=== PATIENT | female | born 1955 | race Caucasian/White ===

== ENCOUNTER 2017-03-27 09:44 | Inpatient (IN) | payer MEDICARE, MEDICAID ==
[~2017-03-27] VITALS: Ht 154.9 cm; Wt 47.2 kg
[~2017-03-27 09:44] MED LIST: AMOXICILLIN500 MG PO; APHTHASOL5% MM; ARMOUR THYROID15 MG PO; CHERRY; CIPROFLOXACIN500 MG PO; CONGAPLEX; HYDR12.5C PO; NORCO 325 MG-51 TAB PO; ROBITUSSIN100 MG/5 M PO; ROXICET ORAL SOL5 ML PO; SYNTHROID,LEVO25 MCG PO; THYMEX; VITAMIN D50000 I3 PO; ZOFRAN ODT4 MG SL; ZYRTEC10 MG PO; [UNRECOGNIZED DRUG - OTHER] SL
[2017-03-27 09:50] VITALS: BP 118/71
[2017-03-27] MEDS ORDERED: NP THYROID60 MG PO (09:54)
[2017-03-27 10:41] LABS: BASO % 0.6 % (0.0-1.0); EOS # 0.2 10*3/uL (0.0-0.4); EOS % 3.2 % (1.0-4.0); HEMATOCRIT 36.7 % (37.0-47.0); HEMOGLOBIN 11.8 g/dl (12.0-16.0); LYMPH # 0.8 10*3/uL (1.3-4.4); LYMPH % 17.4 % (27.0-41.0); MEAN CELL VOLUME 89.5 fl (81.0-99.0); MEAN CORPUSCULAR HGB 28.8 pg (27.0-31.0); MEAN CORPUSCULAR HGB CONC 32.2 g/dl (33.0-37.0); MEAN PLATELET VOLUME 9.2 fl (9.6-12.3); MONO # 0.4 10*3/uL (0.1-1.0); MONO % 9.5 % (3.0-9.0); NEUT # 3.2 10*3/uL (2.3-7.9); NEUT % 69.1 % (47.0-73.0); PLATELET COUNT AUTOMATED 267 10*3/uL (130-400); RED CELL DISTRI WIDTH 13.9 % (0-14.5); WHITE BLOOD COUNT 4.7 10*3/uL (4.8-10.8)
[2017-03-27 10:49] LABS: PROTHROMBIN TIME 10.5 SECONDS (9.0-12.4)
[2017-03-27 10:57] LABS: ALBUMIN 3.4 gm/dl (3.1-4.5); ALKALINE PHOSPHATASE 77 U/L (45-117); BILIRUBIN, TOTAL 0.5 mg/dl (0.2-1.0); BUN 13 mg/dl (7-24); C-REACTIVE PROTEIN 0.41 MG/DL (0-0.3); CARBON DIOXIDE 26 mmol/L (21-32); CHLORIDE 107 mmol/L (98-107); CKMB 0.6 ng/ml (0.5-3.6); CPK 44 U/L (26-192); EST GLOM FILT AFRICAN AMERICAN > 60 ml/min; GLUCOSE 98 mg/dL (65-99); MAGNESIUM 2.1 mg/dL (1.5-2.1); POTASSIUM 3.7 mmol/L (3.5-5.1); SGOT/AST 17 IU/L (3-35); SGPT/ALT 15 U/L (12-78); SODIUM 143 mmol/L (136-145); TOTAL PROTEIN 6.7 gm/dL (6.4-8.2); TROPONIN I < 0.015 ng/ml (<0.045)
[2017-03-27 11:22] LABS: BILIRUBIN NEGATIVE (NEGATIVE); BLOOD NEGATIVE (NEGATIVE); CLARITY CLEAR (CLEAR); COLOR STRAW (YELLOW); GLUCOSE NEGATIVE (NEGATIVE); KETONE NEGATIVE (NEGATIVE); LEUKO ESTERASE TRACE (NEGATIVE); NITRITE NEGATIVE (NEGATIVE); PH 5.5 (5.0-9.0); PROTEIN NEGATIVE (NEGATIVE); SPECIFIC GRAVITY <= 1.005 (1.005-1.030); UROBILINOGEN 0.2 E.U./dl (0.2-1.0)
[2017-03-27 11:45] LABS: URINE REFLEX COMMENT YES (NO)
[2017-03-27 13:15] VITALS: BP 120/66
[2017-03-27] MEDS ORDERED: ARMOUR THYROID60 MG PO (14:11)
[2017-03-27 16:00] VITALS: BP 136/55
[2017-03-27 20:00] VITALS: BP 134/66
[2017-03-28] VITALS: BP 135/78
[2017-03-28 05:42] LABS: BUN 16 mg/dl (7-24); CARBON DIOXIDE 27 mmol/L (21-32); CHLORIDE 106 mmol/L (98-107); EST GLOM FILT AFRICAN AMERICAN > 60 ml/min; GLUCOSE 87 mg/dL (65-99); POTASSIUM 3.5 mmol/L (3.5-5.1); SODIUM 144 mmol/L (136-145)
[2017-03-28 06:01] LABS: BASO % 0.6 % (0.0-1.0); EOS # 0.2 10*3/uL (0.0-0.4); EOS % 3.7 % (1.0-4.0); HEMATOCRIT 35.4 % (37.0-47.0); HEMOGLOBIN 11.4 g/dl (12.0-16.0); LYMPH # 1.7 10*3/uL (1.3-4.4); LYMPH % 32.2 % (27.0-41.0); MEAN CELL VOLUME 89.8 fl (81.0-99.0); MEAN CORPUSCULAR HGB 28.9 pg (27.0-31.0); MEAN CORPUSCULAR HGB CONC 32.2 g/dl (33.0-37.0); MEAN PLATELET VOLUME 9.6 fl (9.6-12.3); MONO # 0.7 10*3/uL (0.1-1.0); MONO % 12.2 % (3.0-9.0); NEUT # 2.8 10*3/uL (2.3-7.9); NEUT % 51.1 % (47.0-73.0); PLATELET COUNT AUTOMATED 247 10*3/uL (130-400); RED BLOOD COUNT 3.94 10*6/uL (4.10-5.10); RED CELL DISTRI WIDTH 14.1 % (0-14.5); WHITE BLOOD COUNT 5.4 10*3/uL (4.8-10.8)
[2017-03-28 07:40] LABS: VITAMIN D, 25-HYDROXY 32.9 ng/mL (30-100)
[2017-03-28 07:41] LABS: FOLIC ACID 12.79 ng/mL (>5.38)
[2017-03-28 08:00] VITALS: BP 121/69
[2017-03-28 12:00] VITALS: BP 138/69
[2017-03-28 16:00] VITALS: BP 145/78
[2017-03-28 20:00] VITALS: BP 126/58
[2017-03-29] VITALS: BP 133/64
[2017-03-29 06:30] LABS: BASO % 0.5 % (0.0-1.0); EOS # 0.1 10*3/uL (0.0-0.4); HEMATOCRIT 36.1 % (37.0-47.0); HEMOGLOBIN 11.9 g/dl (12.0-16.0); LYMPH # 1.3 10*3/uL (1.3-4.4); LYMPH % 24.1 % (27.0-41.0); MEAN CELL VOLUME 89.6 fl (81.0-99.0); MEAN CORPUSCULAR HGB 29.5 pg (27.0-31.0); MONO # 0.6 10*3/uL (0.1-1.0); MONO % 10.2 % (3.0-9.0); NEUT # 3.5 10*3/uL (2.3-7.9); NEUT % 62.8 % (47.0-73.0); PLATELET COUNT AUTOMATED 270 10*3/uL (130-400); RED BLOOD COUNT 4.03 10*6/uL (4.10-5.10); WHITE BLOOD COUNT 5.5 10*3/uL (4.8-10.8)
[2017-03-29 06:55] LABS: BUN 10 mg/dl (7-24); CARBON DIOXIDE 27 mmol/L (21-32); CHLORIDE 107 mmol/L (98-107); EST GLOM FILT AFRICAN AMERICAN > 60 ml/min; GLUCOSE 94 mg/dL (65-99); POTASSIUM 3.6 mmol/L (3.5-5.1); SODIUM 144 mmol/L (136-145)
[2017-03-29 08:00] VITALS: BP 109/65
[2017-03-29 12:00] VITALS: BP 134/73
[2017-03-29 16:00] VITALS: BP 110/54
[2017-03-29 20:00] VITALS: BP 113/64
[2017-03-30] VITALS: BP 118/72
[2017-03-30 06:47] LABS: BASO % 0.7 % (0.0-1.0); EOS # 0.2 10*3/uL (0.0-0.4); EOS % 2.8 % (1.0-4.0); HEMATOCRIT 36.5 % (37.0-47.0); HEMOGLOBIN 11.8 g/dl (12.0-16.0); LYMPH # 1.4 10*3/uL (1.3-4.4); LYMPH % 26.1 % (27.0-41.0); MEAN CELL VOLUME 90.3 fl (81.0-99.0); MEAN CORPUSCULAR HGB 29.2 pg (27.0-31.0); MEAN CORPUSCULAR HGB CONC 32.3 g/dl (33.0-37.0); MEAN PLATELET VOLUME 9.2 fl (9.6-12.3); MONO # 0.6 10*3/uL (0.1-1.0); MONO % 10.9 % (3.0-9.0); NEUT # 3.2 10*3/uL (2.3-7.9); NEUT % 59.1 % (47.0-73.0); PLATELET COUNT AUTOMATED 245 10*3/uL (130-400); RED BLOOD COUNT 4.04 10*6/uL (4.10-5.10); WHITE BLOOD COUNT 5.4 10*3/uL (4.8-10.8)
[2017-03-30 06:58] LABS: BUN 14 mg/dl (7-24); CARBON DIOXIDE 26 mmol/L (21-32); CHLORIDE 109 mmol/L (98-107); EST GLOM FILT AFRICAN AMERICAN > 60 ml/min; GLUCOSE 90 mg/dL (65-99); POTASSIUM 3.7 mmol/L (3.5-5.1); SODIUM 143 mmol/L (136-145)
[2017-03-30 08:00] VITALS: BP 130/60
[2017-03-30 12:09] VITALS: BP 150/58
== END 2017-03-30 16:40 | disposition other institution (70) | DRG 605 ==
LOC: ED 09:44 → EDHOLD 12:32 → 4E 12:32
PROVIDERS: Emergency Medicine; Family Medicine; Internal Medicine
PROC: 0HQ0XZZ Repair Scalp Skin, External Approach (ICD-10-PCS; principal; 2017-03-27)
DX: S01.01XA Laceration without foreign body of scalp, initial encounter (principal); E44.0 Moderate protein-calorie malnutrition; S09.90XA Unspecified injury of head, initial encounter; Z68.1 Body mass index [BMI] 19.9 or less, adult; R53.1 Weakness; R26.89 Other abnormalities of gait and mobility; E03.9 Hypothyroidism, unspecified; R26.81 Unsteadiness on feet; W19.XXXA Unspecified fall, initial encounter; Y93.89 Activity, other specified; Y92.091 Bathroom in other non-institutional residence as the place of occurrence of the external cause; Y99.8 Other external cause status; Z79.899 Other long term (current) drug therapy

== ENCOUNTER → 2017-05-04 | Outpatient (CLI) | payer MEDICARE, MEDICAID ==
[~2017-05-04] MED LIST changes: +ARMOUR THYROID60 MG PO; +NP THYROID60 MG PO
== END | disposition home or self-care (01) ==
LOC: CARD 12:39
DX: R06.89 Other abnormalities of breathing (principal)

== ENCOUNTER 2017-06-30 20:51 | Emergency (ER) | payer MEDICARE, MEDICAID ==
[~2017-06-30] VITALS: Wt 42.2 kg
== END 2017-06-30 23:11 | disposition home or self-care (01) ==
LOC: ED 20:51
DX: S01.112A Laceration without foreign body of left eyelid and periocular area, initial encounter (principal); H10.32 Unspecified acute conjunctivitis, left eye; W19.XXXA Unspecified fall, initial encounter; Y93.89 Activity, other specified; Y92.9 Unspecified place or not applicable; Y99.9 Unspecified external cause status

== ENCOUNTER 2017-09-06 05:17 | Emergency (ER) | payer MEDICARE, MEDICAID ==
[~2017-09-06] VITALS: Ht 177.8 cm; Wt 44.5 kg
[2017-09-06 06:11] LABS: BASO % 0.7 % (0.0-1.0); EOS # 0.2 10*3/uL (0.0-0.4); EOS % 3.5 % (1.0-4.0); HEMATOCRIT 38.7 % (37.0-47.0); HEMOGLOBIN 12.9 g/dl (12.0-16.0); LYMPH # 1.4 10*3/uL (1.3-4.4); LYMPH % 22.9 % (27.0-41.0); MEAN CELL VOLUME 88.4 fl (81.0-99.0); MEAN CORPUSCULAR HGB 29.5 pg (27.0-31.0); MEAN CORPUSCULAR HGB CONC 33.3 g/dl (33.0-37.0); MEAN PLATELET VOLUME 9.2 fl (9.6-12.3); MONO # 0.6 10*3/uL (0.1-1.0); MONO % 10.1 % (3.0-9.0); NEUT # 3.7 10*3/uL (2.3-7.9); NEUT % 62.6 % (47.0-73.0); PLATELET COUNT AUTOMATED 280 10*3/uL (130-400); RED BLOOD COUNT 4.38 10*6/uL (4.10-5.10); RED CELL DISTRI WIDTH 13.4 % (0-14.5); WHITE BLOOD COUNT 5.9 10*3/uL (4.8-10.8)
[2017-09-06 06:30] LABS: ALBUMIN 3.4 gm/dl (3.1-4.5); ALKALINE PHOSPHATASE 76 U/L (45-117); BUN 24 mg/dl (7-24); CHLORIDE 103 mmol/L (98-107); CREATININE 0.88 mg/dL (0.55-1.02); LIPASE 181 U/L (73-393); POTASSIUM 3.2 mmol/L (3.5-5.1); SGOT/AST 16 IU/L (3-35); SGPT/ALT 18 U/L (12-78); SODIUM 144 mmol/L (136-145); TOTAL PROTEIN 6.9 gm/dL (6.4-8.2)
[2017-09-06 06:31] LABS: FREE T4 1.19 ng/dl (0.76-1.46)
[2017-09-06 06:42] LABS: TROPONIN I < 0.015 ng/ml (<0.045)
[2017-09-06 06:42] LABS: BILIRUBIN NEGATIVE (NEGATIVE); BLOOD TRACE-INTACT (NEGATIVE); CLARITY CLEAR (CLEAR); COLOR YELLOW (YELLOW); GLUCOSE NEGATIVE (NEGATIVE); KETONE NEGATIVE (NEGATIVE); LEUKO ESTERASE TRACE (NEGATIVE); NITRITE NEGATIVE (NEGATIVE); UROBILINOGEN 0.2 E.U./dl (0.2-1.0)
[2017-09-06 07:14] LABS: BACTERIA 1+; MUCOUS 1+
== END 2017-09-06 09:05 | disposition home or self-care (01) ==
LOC: ED 05:17
PROVIDERS: Emergency Medicine Emergency Medical Services
DX: J98.11 Atelectasis (principal); E03.9 Hypothyroidism, unspecified; E87.6 Hypokalemia; R10.11 Right upper quadrant pain; Z79.899 Other long term (current) drug therapy; Z98.890 Other specified postprocedural states

== ENCOUNTER 2017-12-14 17:26 | Emergency (ER) | payer MEDICARE, MEDICAID ==
[~2017-12-14] VITALS: Wt 45.4 kg
[2017-12-14 18:18] LABS: BILIRUBIN NEGATIVE (NEGATIVE); BLOOD TRACE-INTACT (NEGATIVE); CLARITY CLEAR (CLEAR); COLOR YELLOW (YELLOW); GLUCOSE NEGATIVE (NEGATIVE); KETONE NEGATIVE (NEGATIVE); LEUKO ESTERASE NEGATIVE (NEGATIVE); NITRITE NEGATIVE (NEGATIVE); SPECIFIC GRAVITY >= 1.030 (1.005-1.030); UROBILINOGEN 0.2 E.U./dl (0.2-1.0)
[2017-12-14 18:35] LABS: EPITHELIAL CELLS 0-2; WBC 0-2 wbc/hpf (0-5)
== END 2017-12-14 19:02 | disposition home or self-care (01) ==
LOC: ED 17:26
PROVIDERS: Nurse Practitioner Family
DX: N89.8 Other specified noninflammatory disorders of vagina (principal); Z98.890 Other specified postprocedural states; Z79.899 Other long term (current) drug therapy

== ENCOUNTER → 2018-04-25 | Outpatient (CLI) | payer MEDICARE, MEDICAID | END | disposition home or self-care (01) | LOC: US 17:00 | DX: I73.9 Peripheral vascular disease, unspecified (principal); R60.0 Localized edema ==

== ENCOUNTER 2018-06-25 10:49 | Inpatient (IN) | payer MEDICARE, MEDICAID ==
[~2018-06-25] VITALS: Ht 147.3 cm; Wt 66.0 kg
--- NOTE | ~2018-06-25 | EKG ---
[place], [place] ELECTROCARDIOGRAM REPORT NAME: FARRUKH CARRINGTON UNIT #: [id number] ROOM: 426 DOCTOR: EPIPHANY DRAFT REPORT BIRTHDATE: [birth year] [facility] Test Date: 2018-06-25 Test Time: 12:43:53 Pat Name: FARRUKH CARRINGTON Department: Room: 426 Gender: F Recording Artist: GENO : 1955 Requested By: MARCIO HU Order Number: [id number] Reading MD: Yuliya Heath MD Measurements Intervals [place] Rate: 102 P: 42 TN: 184 QRS: -2 QRSD: 75 T: 28 QT: 350 QTc: 456 Interpretive Statements Sinus tachycardia Baseline wander in lead(s) V2 Compared to ECG 06/03/2018 13:55:33 Atrial fibrillation no longer present Ventricular premature complex(es) no longer present Left bundle-branch block no longer present Electronically Signed On 06-26-2018 9:16:56 PDT by Yuliya Heath MD CM:EKGRPT:ELECTROCARDIOGRAM REPORT [id number] MARCIO HU EPIPHANY DRAFT REPORT MARCIO HU
[~2018-06-25 10:49] MED LIST changes: +LEVODOPA25 GM PO
[2018-06-25 10:55] VITALS: BP 112/54
[2018-06-25 12:45] LABS: BASO % 0.4 % (0.0-1.0); EOS # 0.1 10*3/uL (0.0-0.4); EOS % 0.6 % (1.0-4.0); HEMATOCRIT 36.8 % (37.0-47.0); HEMOGLOBIN 11.6 g/dl (12.0-16.0); LYMPH % 10.1 % (27.0-41.0); MEAN CELL VOLUME 91.5 fl (81.0-99.0); MEAN CORPUSCULAR HGB 28.9 pg (27.0-31.0); MEAN CORPUSCULAR HGB CONC 31.5 g/dl (33.0-37.0); MEAN PLATELET VOLUME 9.3 fl (9.6-12.3); MONO % 10.2 % (3.0-9.0); NEUT # 7.8 10*3/uL (2.3-7.9); NEUT % 78.4 % (47.0-73.0); PLATELET COUNT AUTOMATED 275 10*3/uL (130-400); RED BLOOD COUNT 4.02 10*6/uL (4.10-5.10); RED CELL DISTRI WIDTH 14.2 % (0-14.5)
[2018-06-25 12:49] VITALS: BP 129/52
[2018-06-25 12:54] LABS: ACT PARTIAL THROMBO TIME 22.7 SECONDS (20.8-31.5); INTERNATIONAL NORM RATIO 0.9 (2.0-3.5)
[2018-06-25 13:02] LABS: ALBUMIN 3.2 gm/dl (3.1-4.5); ALKALINE PHOSPHATASE 108 U/L (45-117); BUN 21 mg/dl (7-24); CHLORIDE 110 mmol/L (98-107); CREATININE 0.71 mg/dL (0.55-1.02); POTASSIUM 4.3 mmol/L (3.5-5.1); SGOT/AST 12 IU/L (3-35); SGPT/ALT 20 U/L (12-78); SODIUM 144 mmol/L (136-145); TOTAL PROTEIN 6.9 gm/dL (6.4-8.2)
[2018-06-25 13:23] LABS: TROPONIN I < 0.015 ng/ml (<0.045)
[2018-06-25 14:11] VITALS: BP 113/65
[2018-06-25 14:14] LABS: BILIRUBIN NEGATIVE (NEGATIVE); BLOOD NEGATIVE (NEGATIVE); CLARITY CLEAR (CLEAR); COLOR YELLOW (YELLOW); GLUCOSE NEGATIVE (NEGATIVE); KETONE NEGATIVE (NEGATIVE); LEUKO ESTERASE NEGATIVE (NEGATIVE); NITRITE NEGATIVE (NEGATIVE); PH 6.5 (5.0-9.0); UROBILINOGEN 0.2 E.U./dl (0.2-1.0)
[2018-06-25 14:28] VITALS: BP 115/56
[2018-06-25 14:31] LABS: BACTERIA TRACE; EPITHELIAL CELLS 0-1; RBC 0-2 rbc/hpf (0-2)
[2018-06-25] MEDS ORDERED: VITAMIN D-32000 UNI1 PO (15:14)
[2018-06-25] MEDS ORDERED: SINEMET 25-1001 EACH PO (15:15)
[2018-06-25] MEDS ORDERED: BUMETANIDE1 MG PO (15:16)
[2018-06-25] MEDS ORDERED: KLOR-CON 1010 ME1 PO (15:17)
[2018-06-25 16:00] VITALS: BP 116/52
[2018-06-25 20:00] VITALS: BP 114/46
[2018-06-26] VITALS: BP 122/52
[2018-06-26 06:16] LABS: BASO % 0.5 % (0.0-1.0); EOS # 0.2 10*3/uL (0.0-0.4); HEMATOCRIT 33.5 % (37.0-47.0); HEMOGLOBIN 10.5 g/dl (12.0-16.0); LYMPH # 1.2 10*3/uL (1.3-4.4); LYMPH % 17.8 % (27.0-41.0); MEAN CELL VOLUME 92.5 fl (81.0-99.0); MEAN CORPUSCULAR HGB CONC 31.3 g/dl (33.0-37.0); MEAN PLATELET VOLUME 9.6 fl (9.6-12.3); MONO # 0.8 10*3/uL (0.1-1.0); MONO % 12.6 % (3.0-9.0); NEUT # 4.3 10*3/uL (2.3-7.9); NEUT % 65.9 % (47.0-73.0); PLATELET COUNT AUTOMATED 269 10*3/uL (130-400); RED BLOOD COUNT 3.62 10*6/uL (4.10-5.10); RED CELL DISTRI WIDTH 14.2 % (0-14.5); WHITE BLOOD COUNT 6.6 10*3/uL (4.8-10.8)
[2018-06-26 06:55] LABS: ALBUMIN 2.7 gm/dl (3.1-4.5); BUN 18 mg/dl (7-24); CHLORIDE 109 mmol/L (98-107); CHOLESTEROL 108 mg/dL (<200); CREATININE 0.64 mg/dL (0.55-1.02); POTASSIUM 3.7 mmol/L (3.5-5.1); SGOT/AST 14 IU/L (3-35); SGPT/ALT 17 U/L (12-78); SODIUM 142 mmol/L (136-145); TOTAL PROTEIN 5.9 gm/dL (6.4-8.2); TRIGLYCERIDES 50 mg/dl (<150); VLDL CHOLESTEROL 10 mg/dL (6-40)
[2018-06-26 07:02] LABS: ALKALINE PHOSPHATASE 90 U/L (45-117); HDL CHOLESTEROL 79 mg/dl (40-60); LDL CHOLESTEROL 19 mg/dL (9-159)
[2018-06-26 08:00] VITALS: BP 113/64
[2018-06-26 12:00] VITALS: BP 107/61
[2018-06-26 16:00] VITALS: BP 108/67
[2018-06-26 20:00] VITALS: BP 112/48
[2018-06-27 01:49] VITALS: BP 110/40
[2018-06-27 05:52] LABS: BUN 17 mg/dl (7-24); CHLORIDE 114 mmol/L (98-107); CREATININE 0.56 mg/dL (0.55-1.02); POTASSIUM 4.1 mmol/L (3.5-5.1); SODIUM 145 mmol/L (136-145)
[2018-06-27 06:16] LABS: BASO % 0.6 % (0.0-1.0); EOS # 0.3 10*3/uL (0.0-0.4); EOS % 5.6 % (1.0-4.0); HEMATOCRIT 34.5 % (37.0-47.0); HEMOGLOBIN 10.8 g/dl (12.0-16.0); LYMPH # 1.2 10*3/uL (1.3-4.4); LYMPH % 24.4 % (27.0-41.0); MEAN CELL VOLUME 92.5 fl (81.0-99.0); MEAN CORPUSCULAR HGB CONC 31.3 g/dl (33.0-37.0); MEAN PLATELET VOLUME 9.7 fl (9.6-12.3); MONO # 0.7 10*3/uL (0.1-1.0); MONO % 12.9 % (3.0-9.0); NEUT # 2.8 10*3/uL (2.3-7.9); NEUT % 56.3 % (47.0-73.0); PLATELET COUNT AUTOMATED 274 10*3/uL (130-400); RED BLOOD COUNT 3.73 10*6/uL (4.10-5.10)
[2018-06-27 08:00] VITALS: BP 96/70
[2018-06-27] MEDS ORDERED: ZITHROMAX250 MG PO (09:53)
[2018-06-27 12:00] VITALS: BP 100/78
== END 2018-06-27 13:52 | disposition home or self-care (01) | DRG 178 ==
LOC: ED 10:49 → 4E 13:33 → EDHOLD 13:33 → 4E 13:49
PROVIDERS: Internal Medicine; Nurse Practitioner Family
DX: J69.0 Pneumonitis due to inhalation of food and vomit (principal); E44.1 Mild protein-calorie malnutrition; E87.8 Other disorders of electrolyte and fluid balance, not elsewhere classified; R60.0 Localized edema; D64.9 Anemia, unspecified; E03.9 Hypothyroidism, unspecified; R00.0 Tachycardia, unspecified; R26.2 Difficulty in walking, not elsewhere classified; F89 Unspecified disorder of psychological development; G20 Parkinson's disease; Z79.899 Other long term (current) drug therapy; Z87.81 Personal history of (healed) traumatic fracture; Z68.30 Body mass index [BMI] 30.0-30.9, adult

== ENCOUNTER 2018-10-20 17:30 | Emergency (ER) | payer MEDICARE, MEDICAID ==
[~2018-10-20] VITALS: Wt 49.9 kg
[~2018-10-20 17:30] MED LIST changes: +BUMETANIDE1 MG PO; +KLOR-CON 1010 ME1 PO; +SINEMET 25-1001 EACH PO; +VITAMIN D-32000 UNI1 PO; +ZITHROMAX250 MG PO
[2018-10-20] MEDS ORDERED: ZITHROMAX250 MG PO (19:48)
[2018-10-20] MEDS ORDERED: DELTASONE20 M1 PO (19:48)
== END 2018-10-20 20:02 | disposition home or self-care (01) ==
LOC: ED 17:30
DX: J40 Bronchitis, not specified as acute or chronic (principal); Z79.2 Long term (current) use of antibiotics; Z79.899 Other long term (current) drug therapy

== ENCOUNTER 2018-10-31 01:26 | Emergency (ER) | payer MEDICARE, MEDICAID ==
[~2018-10-31] VITALS: Ht 157.4 cm; Wt 63.5 kg
--- NOTE | ~2018-10-31 | EKG ---
[place], [place] ELECTROCARDIOGRAM REPORT NAME: FARRUKH CARRINGTON UNIT #: [id number] ROOM: DOCTOR: MAGNUS DRAFT REPORT BIRTHDATE: [birth year] [facility] Test Date: 2018-10-31 Test Time: 01:58:47 Pat Name: FARRUKH CARRINGTON Department: Room: Gender: F Dolphin Trainer: Alek Noel : 1955 Requested By: PAULA CARNES Order Number: [id number] Reading MD: Gama Cobb MD Measurements Intervals [place] Rate: 117 P: 60 HI: 161 QRS: 53 QRSD: 111 T: 61 QT: 340 QTc: 475 Interpretive Statements Sinus tachycardia Ventricular premature complex Probable left atrial enlargement Anterior infarct, old Artifact in lead(s) I,II,III,aVR,aVL,aVF,V1,V2,V3,V4,V5,V6 and baseline wander in lead(s) I,III,aVL,V3,V5 Compared to ECG 06/25/2018 12:43:53 Ventricular premature complex(es) now present Myocardial infarct finding now present Electronically Signed On 11-02-2018 14:07:26 PST by Gama Cobb MD CM:EKGRPT:ELECTROCARDIOGRAM REPORT [id number] PAULA DAS DRAFT REPORT PAULA CARNES DO
[~2018-10-31 01:26] MED LIST changes: +DELTASONE20 M1 PO
[2018-10-31 02:02] LABS: BASO # 0.1 10*3/uL (0.0-0.1); BASO % 0.5 % (0.0-1.0); EOS # 0.1 10*3/uL (0.0-0.4); EOS % 1.1 % (1.0-4.0); HEMATOCRIT 38.9 % (37.0-47.0); HEMOGLOBIN 12.5 g/dl (12.0-16.0); LYMPH # 1.5 10*3/uL (1.3-4.4); LYMPH % 16.5 % (27.0-41.0); MEAN CELL VOLUME 89.8 fl (81.0-99.0); MEAN CORPUSCULAR HGB 28.9 pg (27.0-31.0); MEAN CORPUSCULAR HGB CONC 32.1 g/dl (33.0-37.0); MEAN PLATELET VOLUME 9.2 fl (9.6-12.3); MONO # 0.9 10*3/uL (0.1-1.0); MONO % 9.1 % (3.0-9.0); NEUT # 6.7 10*3/uL (2.3-7.9); NEUT % 72.4 % (47.0-73.0); PLATELET COUNT AUTOMATED 310 10*3/uL (130-400); RED BLOOD COUNT 4.33 10*6/uL (4.10-5.10); RED CELL DISTRI WIDTH 14.5 % (0-14.5); WHITE BLOOD COUNT 9.3 10*3/uL (4.8-10.8)
[2018-10-31 02:19] LABS: ALBUMIN 2.9 gm/dl (3.1-4.5); ALKALINE PHOSPHATASE 127 U/L (45-117); BUN 31 mg/dl (7-24); CHLORIDE 113 mmol/L (98-107); CREATININE 0.76 mg/dL (0.55-1.02); POTASSIUM 4.4 mmol/L (3.5-5.1); SGOT/AST 14 IU/L (3-35); SGPT/ALT 14 U/L (12-78); SODIUM 147 mmol/L (136-145); TOTAL PROTEIN 6.4 gm/dL (6.4-8.2)
[2018-10-31 02:20] LABS: TROPONIN I < 0.015 ng/ml (<0.045)
== END 2018-10-31 03:32 | disposition short-term general hospital (02) ==
LOC: ED 01:26
PROVIDERS: Student in an Organized Health Care Education/Training Program
DX: S82.101A Unspecified fracture of upper end of right tibia, initial encounter for closed fracture (principal); S82.831A Other fracture of upper and lower end of right fibula, initial encounter for closed fracture; E03.9 Hypothyroidism, unspecified; Z79.899 Other long term (current) drug therapy; W06.XXXA Fall from bed, initial encounter; Y93.89 Activity, other specified; Y92.098 Other place in other non-institutional residence as the place of occurrence of the external cause; Y99.8 Other external cause status

== ENCOUNTER → 2020-10-24 | Outpatient (CLI) | payer MEDICARE, MEDICAID | END | disposition home or self-care (01) | LOC: US 15:30 | PROVIDERS: ATTEND Podiatrist | DX: R60.0 Localized edema (principal) ==

== ENCOUNTER → 2020-12-12 | Outpatient (CLI) | payer MEDICARE, MEDICAID | END | disposition home or self-care (01) | LOC: CARD 11:19 | PROVIDERS: ATTEND Internal Medicine Cardiovascular Disease | DX: I49.1 Atrial premature depolarization (principal) ==

== ENCOUNTER → 2021-02-06 | Outpatient (CLI) | payer MEDICARE, MEDICAID ==
[2021-02-06 15:42] LABS: BASO # 0.1 10*3/uL (0.0-0.1); BASO % 0.8 % (0.0-1.0); EOS # 0.4 10*3/uL (0.0-0.4); HEMATOCRIT 40.3 % (37.0-47.0); LYMPH % 16.4 % (27.0-41.0); MEAN CELL VOLUME 91.8 fl (81.0-99.0); MEAN CORPUSCULAR HGB 28.5 pg (27.0-31.0); MEAN PLATELET VOLUME 9.7 fl (9.6-12.3); MONO # 0.6 10*3/uL (0.1-1.0); MONO % 10.5 % (3.0-9.0); PLATELET COUNT AUTOMATED 256 10*3/uL (130-400); RED BLOOD COUNT 4.39 10*6/uL (4.10-5.10)
== END | disposition home or self-care (01) ==
LOC: LAB 15:19
PROVIDERS: ATTEND Family Medicine
DX: I49.9 Cardiac arrhythmia, unspecified (principal); I25.2 Old myocardial infarction

== ENCOUNTER → 2021-04-10 | Outpatient (CLI) | payer MEDICARE, MEDICAID ==
[~2021-04-10] MED LIST changes: +CIPRO500 MG PO
== END | disposition home or self-care (01) ==
LOC: RAD/SH 12:47
PROVIDERS: ATTEND Family Medicine
DX: I69.391 Dysphagia following cerebral infarction (principal); R13.10 Dysphagia, unspecified

== ENCOUNTER 2021-05-08 14:37 | Inpatient (IN) | payer MEDICARE, MEDICAID ==
[~2021-05-08] VITALS: Ht 149.8 cm; Wt 49.9 kg
[2021-05-08 14:28] LABS: BASO % 0.5 % (0.0-1.0); EOS # 0.1 10*3/uL (0.0-0.4); EOS % 2.1 % (1.0-4.0); HEMATOCRIT 40.5 % (37.0-47.0); LYMPH # 0.8 10*3/uL (1.3-4.4); LYMPH % 14.1 % (27.0-41.0); MEAN CELL VOLUME 91.8 fl (81.0-99.0); MEAN CORPUSCULAR HGB 28.3 pg (27.0-31.0); MEAN CORPUSCULAR HGB CONC 30.9 g/dl (33.0-37.0); MEAN PLATELET VOLUME 9.4 fl (9.6-12.3); MONO # 0.5 10*3/uL (0.1-1.0); MONO % 8.8 % (3.0-9.0); NEUT # 4.3 10*3/uL (2.3-7.9); NEUT % 74.2 % (47.0-73.0); PLATELET COUNT AUTOMATED 267 10*3/uL (130-400); RED BLOOD COUNT 4.41 10*6/uL (4.10-5.10); RED CELL DISTRI WIDTH 14.4 % (0-14.5); WHITE BLOOD COUNT 5.8 10*3/uL (4.8-10.8)
[~2021-05-08 14:37] MED LIST changes: -CIPRO500 MG PO
[2021-05-08 14:47] VITALS: BP 113/51
[2021-05-08 15:31] LABS: BILIRUBIN Negative (Negative); BLOOD Trace-Intact (Negative); CLARITY Cloudy (Clear); COLOR Yellow (Yellow); GLUCOSE Negative (Negative); KETONE 1+ (Negative); LEUKO ESTERASE 3+ (Negative); NITRITE Negative (Negative); PH 7.5 (4.5-8.0); SPECIFIC GRAVITY 1.015 (1.001-1.030); UROBILINOGEN 0.2 E.U./dl (0.0-1.0)
[2021-05-08 15:47] LABS: BACTERIA 1+; WBC TNTC wbc/hpf (0-5)
[2021-05-08 15:54] LABS: BASO % 0.6 % (0.0-1.0); EOS # 0.1 10*3/uL (0.0-0.4); EOS % 1.7 % (1.0-4.0); HEMATOCRIT 44.7 % (37.0-47.0); LYMPH # 0.8 10*3/uL (1.3-4.4); LYMPH % 15.9 % (27.0-41.0); MEAN CELL VOLUME 91.2 fl (81.0-99.0); MEAN CORPUSCULAR HGB 28.6 pg (27.0-31.0); MEAN CORPUSCULAR HGB CONC 31.3 g/dl (33.0-37.0); MEAN PLATELET VOLUME 9.4 fl (9.6-12.3); MONO # 0.5 10*3/uL (0.1-1.0); MONO % 9.1 % (3.0-9.0); NEUT # 3.7 10*3/uL (2.3-7.9); NEUT % 72.3 % (47.0-73.0); PLATELET COUNT AUTOMATED 284 10*3/uL (130-400); RED CELL DISTRI WIDTH 14.6 % (0-14.5); WHITE BLOOD COUNT 5.2 10*3/uL (4.8-10.8)
[2021-05-08 16:16] LABS: ALBUMIN 3.7 gm/dl (3.1-4.5); ALKALINE PHOSPHATASE 93 U/L (45-117); BUN 17 mg/dl (7-24); CHLORIDE 111 mmol/L (98-107); LIPASE 132 U/L (73-393); POTASSIUM 4.3 mmol/L (3.5-5.1); SGOT/AST 15 IU/L (3-35); SGPT/ALT 18 U/L (12-78); SODIUM 141 mmol/L (136-145); TOTAL PROTEIN 7.4 gm/dL (6.4-8.2)
[2021-05-08 16:17] LABS: TROPONIN I < 0.015 ng/ml (<0.045)
[2021-05-08] MEDS ORDERED: CIPRO500 MG PO (18:16)
== END 2021-05-09 02:59 | disposition left against medical advice (07) | DRG 690 ==
LOC: EDSTATUS 14:37 → ED 14:38 → EDHOLD 17:35
PROVIDERS: Emergency Medicine; Family Medicine; ADMIT Student in an Organized Health Care Education/Training Program; ATTEND Student in an Organized Health Care Education/Training Program
DX: N39.0 Urinary tract infection, site not specified (principal); I49.1 Atrial premature depolarization; Z53.29 Procedure and treatment not carried out because of patient's decision for other reasons

== ENCOUNTER 2021-10-21 18:05 | Emergency (ER) | payer MEDICARE, MEDICAID ==
[~2021-10-21] VITALS: Ht 149.8 cm; Wt 45.4 kg
[~2021-10-21 18:05] MED LIST changes: +CIPRO500 MG PO
[2021-10-21] MEDS ORDERED: HYDR25T PO (18:22)
[2021-10-21 18:45] LABS: BASO # 0.1 10*3/uL (0.0-0.1); EOS # 0.2 10*3/uL (0.0-0.4); EOS % 2.7 % (1.0-4.0); HEMATOCRIT 39.8 % (37.0-47.0); LYMPH # 0.9 10*3/uL (1.3-4.4); MEAN CELL VOLUME 91.9 fl (81.0-99.0); MEAN CORPUSCULAR HGB 29.1 pg (27.0-31.0); MEAN CORPUSCULAR HGB CONC 31.7 g/dl (33.0-37.0); MEAN PLATELET VOLUME 9.3 fl (9.6-12.3); MONO # 0.7 10*3/uL (0.1-1.0); MONO % 11.5 % (3.0-9.0); NEUT % 68.5 % (47.0-73.0); PLATELET COUNT AUTOMATED 316 10*3/uL (130-400); RED BLOOD COUNT 4.33 10*6/uL (4.10-5.10); RED CELL DISTRI WIDTH 14.2 % (0-14.5); WHITE BLOOD COUNT 5.8 10*3/uL (4.8-10.8)
[2021-10-21 18:55] LABS: ACT PARTIAL THROMBO TIME 25.3 SECONDS (20.0-32.1)
[2021-10-21 19:01] LABS: ALBUMIN 3.3 gm/dl (3.1-4.5); ALKALINE PHOSPHATASE 94 U/L (45-117); BUN 17 mg/dl (7-24); CHLORIDE 111 mmol/L (98-107); CREATININE 0.74 mg/dL (0.55-1.02); LIPASE 155 U/L (73-393); SGOT/AST 13 IU/L (3-35); SGPT/ALT 12 U/L (12-78); SODIUM 143 mmol/L (136-145); TOTAL PROTEIN 6.6 gm/dL (6.4-8.2)
[2021-10-21 23:12] LABS: BILIRUBIN Negative (Negative); BLOOD Negative (Negative); CLARITY Cloudy (Clear); COLOR Yellow (Yellow); GLUCOSE Negative (Negative); KETONE Negative (Negative); LEUKO ESTERASE 2+ (Negative); NITRITE Negative (Negative); PH 5.5 (4.5-8.0); UROBILINOGEN 0.2 E.U./dl (0.0-1.0)
[2021-10-21 23:19] LABS: EPITHELIAL CELLS 41-50
[2021-10-21 23:20] LABS: BACTERIA 1+; WBC 31-40 wbc/hpf (0-5)
[2021-10-22] MEDS ORDERED: CEPHALEXIN500 M1 PO (00:06)
== END 2021-10-22 00:09 | disposition home or self-care (01) ==
LOC: ED 18:05
PROVIDERS: Emergency Medicine
DX: N39.0 Urinary tract infection, site not specified (principal); R00.0 Tachycardia, unspecified; Z79.899 Other long term (current) drug therapy; Z98.890 Other specified postprocedural states

== ENCOUNTER → 2022-09-04 | Outpatient (CLI) | payer MEDICARE, MEDICAID ==
[~2022-09-04] MED LIST changes: +CEPHALEXIN500 M1 PO; +HYDR25T PO
== END | disposition home or self-care (01) ==
LOC: RAD 13:23
PROVIDERS: ATTEND Family Medicine
DX: R05.9 Cough, unspecified (principal)

== ENCOUNTER → 2022-10-22 | Outpatient (CLI) | payer MEDICARE, MEDICAID | END | disposition home or self-care (01) | LOC: WOUNDCARE 09:32 | PROVIDERS: ATTEND Nurse Practitioner Family | DX: L89.329 Pressure ulcer of left buttock, unspecified stage (principal); G20 Parkinson's disease; E07.89 Other specified disorders of thyroid ==

== ENCOUNTER → 2023-02-01 | Outpatient (CLI) | payer MEDICARE, MEDICAID | END | disposition home or self-care (01) | LOC: WOUNDCARE 02:09 | PROVIDERS: ATTEND Nurse Practitioner Primary Care | DX: G20 Parkinson's disease (principal); R26.9 Unspecified abnormalities of gait and mobility; R54 Age-related physical debility; E07.89 Other specified disorders of thyroid ==

== ENCOUNTER → 2023-05-27 | Outpatient (CLI) | payer MEDICARE, MEDICAID | LOC: WOUNDCARE 03:07 | PROVIDERS: ATTEND Nurse Practitioner Family | DX: S70.361A Insect bite (nonvenomous), right thigh, initial encounter (principal); S90.562A Insect bite (nonvenomous), left ankle, initial encounter; R60.9 Edema, unspecified; L03.90 Cellulitis, unspecified; G20 Parkinson's disease; E07.89 Other specified disorders of thyroid; I87.2 Venous insufficiency (chronic) (peripheral); I73.9 Peripheral vascular disease, unspecified ==

== ENCOUNTER → 2023-06-02 | Outpatient (CLI) | payer MEDICARE, MEDICAID | END | disposition home or self-care (01) | LOC: LAB 01:52 → WOUNDCARE 01:52 | PROVIDERS: ATTEND Nurse Practitioner Family | DX: S90.562D Insect bite (nonvenomous), left ankle, subsequent encounter (principal); S70.362A Insect bite (nonvenomous), left thigh, initial encounter; L89.221 Pressure ulcer of left hip, stage 1; L03.90 Cellulitis, unspecified; R60.9 Edema, unspecified; M85.88 Other specified disorders of bone density and structure, other site; M19.012 Primary osteoarthritis, left shoulder; E55.9 Vitamin D deficiency, unspecified; M53.3 Sacrococcygeal disorders, not elsewhere classified; G20 Parkinson's disease; E07.89 Other specified disorders of thyroid; I87.2 Venous insufficiency (chronic) (peripheral); I73.9 Peripheral vascular disease, unspecified ==

== ENCOUNTER → 2023-09-16 | Outpatient (CLI) | payer MEDICARE, MEDICAID | END | disposition home or self-care (01) | LOC: RAD 14:16 | PROVIDERS: ATTEND Family Medicine | DX: I51.7 Cardiomegaly (principal); R06.02 Shortness of breath ==

== ENCOUNTER → 2023-09-21 | Outpatient (CLI) | payer MEDICARE, MEDICAID | END | disposition home or self-care (01) | LOC: CARD 12:00 | PROVIDERS: ATTEND Family Medicine | DX: I08.3 Combined rheumatic disorders of mitral, aortic and tricuspid valves (principal); R01.1 Cardiac murmur, unspecified ==

== ENCOUNTER 2024-02-10 15:29 | Inpatient (IN) | payer MEDICARE, MEDICAID ==
[~2024-02-10] VITALS: Ht 155 cm; Wt 34.7 kg
[2024-02-10 16:18] VITALS: BP 155/71
[2024-02-10 16:21] LABS: ABG BASE EXCESS 0.3 mmol/L (-2.0-2.0); ARTERIAL BLOOD GAS PH 7.469 (7.35-7.45)
[2024-02-10 16:41] LABS: BASO # 0.1 10*3/uL (0.0-0.1); BASO % 0.9 % (0.0-1.0); EOS # 0.1 10*3/uL (0.0-0.4); EOS % 1.2 % (1.0-4.0); LYMPH # 0.6 10*3/uL (1.3-4.4); LYMPH % 9.9 % (27.0-41.0); MEAN CELL VOLUME 96.8 fl (81.0-99.0); MEAN CORPUSCULAR HGB 29.7 pg (27.0-31.0); MEAN CORPUSCULAR HGB CONC 30.7 g/dl (33.0-37.0); MEAN PLATELET VOLUME 9.4 fl (9.6-12.3); MONO # 0.6 10*3/uL (0.1-1.0); MONO % 8.8 % (3.0-9.0); NEUT # 5.1 10*3/uL (2.3-7.9); PLATELET COUNT AUTOMATED 265 10*3/uL (130-400); RED BLOOD COUNT 4.34 10*6/uL (4.10-5.10); RED CELL DISTRI WIDTH 13.4 % (0-14.5); WHITE BLOOD COUNT 6.5 10*3/uL (4.8-10.8)
[2024-02-10 16:52] LABS: ACT PARTIAL THROMBO TIME 25.6 SECONDS (20.0-32.1)
[2024-02-10 16:58] LABS: ALKALINE PHOSPHATASE 95 U/L (46-116); BUN 17 mg/dl (9-23); CHLORIDE 108 mmol/L (98-107); POTASSIUM 4.4 mmol/L (3.4-5.1); SGPT/ALT < 7 U/L (5-49); TOTAL PROTEIN 6.1 gm/dL (6.0-8.0)
[2024-02-10] MEDS ORDERED: NEURONTIN300 MG PO (17:09)
[2024-02-10] MEDS ORDERED: SODIUM CHLORIDE 0.9% 500 ML IV ONE (17:20)
[2024-02-10] MEDS ORDERED: Ceftriaxone Sodium 1 GM/10 ML SYR IV ONE (19:15)
[2024-02-10] MEDS ORDERED: AZITHROMYCIN 250 ML IV ONE (19:15)
[2024-02-10 20:05] LABS: BILIRUBIN Negative (Negative); BLOOD 1+ (Negative); CLARITY Clear (Clear); COLOR Yellow (Yellow); GLUCOSE Negative (Negative); KETONE Negative (Negative); LEUKO ESTERASE Negative (Negative); NITRITE Negative (Negative); UROBILINOGEN 0.2 E.U./dl (0.0-1.0)
[2024-02-10 20:17] LABS: BACTERIA TRACE; MUCOUS 1+; WBC 0-2 wbc/hpf (0-5)
[2024-02-10] MEDS ORDERED: TEMAZEPAM 15 MG CAP PO PRN (21:20)
[2024-02-10] MEDS ORDERED: MORPHINE Sulfate 2 MG/ML SYR IV PRN (21:20)
[2024-02-10] MEDS ORDERED: Ondansetron Hydrochloride 4 MG/2 ML VIAL IV PRN (21:20)
[2024-02-10] MEDS ORDERED: Acetaminophen/Hydrocodone 5 MG/325 MG TABLET PO PRN (21:20)
[2024-02-10] MEDS ORDERED: ACETAMINOPHEN 650 MG SUPP R PRN (21:20)
[2024-02-10] MEDS ORDERED: Magnesium Hydroxide 30 ML UDC PO PRN (21:20)
[2024-02-10] MEDS ORDERED: ACETAMINOPHEN 325 MG TAB PO PRN (21:20)
[2024-02-10] MEDS ORDERED: BISACODYL 5 MG TAB PO PRN (21:20)
[2024-02-10] MEDS ORDERED: Albuterol Sulf/Ipratropium 3 ML VIAL NEB SCH (22:05)
[2024-02-10 23:55] VITALS: BP 138/70
[2024-02-11] MEDS ORDERED: Ampicillin Sodium/Sulbactam 3 GM in SODIUM CHLORIDE 0.9% 100 ML IV SCH
[2024-02-11 05:00] VITALS: BP 128/60
[2024-02-11 06:31] LABS: BASO # 0.1 10*3/uL (0.0-0.1); BASO % 0.9 % (0.0-1.0); EOS # 0.1 10*3/uL (0.0-0.4); EOS % 2.2 % (1.0-4.0); HEMATOCRIT 37.6 % (37.0-47.0); LYMPH # 0.9 10*3/uL (1.3-4.4); LYMPH % 15.7 % (27.0-41.0); MEAN CORPUSCULAR HGB 29.9 pg (27.0-31.0); MONO # 0.6 10*3/uL (0.1-1.0); MONO % 11.4 % (3.0-9.0); NEUT # 3.9 10*3/uL (2.3-7.9); NEUT % 69.6 % (47.0-73.0); PLATELET COUNT AUTOMATED 231 10*3/uL (130-400); RED BLOOD COUNT 4.15 10*6/uL (4.10-5.10); RED CELL DISTRI WIDTH 13.7 % (0-14.5); WHITE BLOOD COUNT 5.6 10*3/uL (4.8-10.8)
[2024-02-11 06:49] LABS: MEAN CELL VOLUME 90.6 fl (81.0-99.0)
[2024-02-11 07:36] LABS: ALKALINE PHOSPHATASE 82 U/L (46-116); BUN 14 mg/dl (9-23); CHLORIDE 109 mmol/L (98-107); CHOLESTEROL 128 mg/dL (<200); LDL CHOLESTEROL 50 mg/dL (9-159); POTASSIUM 3.9 mmol/L (3.4-5.1); SGPT/ALT 15 U/L (5-49); TOTAL PROTEIN 5.7 gm/dL (6.0-8.0); TRIGLYCERIDES 54 mg/dl (<150)
[2024-02-11 08:07] LABS: VITAMIN D, 25-HYDROXY 35.8 ng/mL (30-100)
[2024-02-11] MEDS ORDERED: RYTARY ER 23.71 EACH PO (09:29)
[2024-02-11 09:33] VITALS: BP 122/60
[2024-02-11] MEDS ORDERED: Enoxaparin Sodium 40 MG/0.4 ML SYR SC SCH (10:00)
[2024-02-11] MEDS ORDERED: FUROSEMIDE 20 MG/2 ML VIAL IV SCH (10:00)
[2024-02-11] MEDS ORDERED: RYTARY PO PRN (13:30)
[2024-02-11 16:30] VITALS: BP 122/61
[2024-02-11 20:00] VITALS: BP 116/45
[2024-02-11] MEDS ORDERED: GABAPENTIN 300 MG CAP PO SCH (22:00)
[2024-02-12] VITALS: BP 139/68
[2024-02-12 06:06] LABS: BUN 14 mg/dl (9-23); CHLORIDE 108 mmol/L (98-107); POTASSIUM 3.8 mmol/L (3.4-5.1)
[2024-02-12 06:25] LABS: BASO # 0.1 10*3/uL (0.0-0.1); BASO % 0.7 % (0.0-1.0); EOS # 0.2 10*3/uL (0.0-0.4); EOS % 2.2 % (1.0-4.0); HEMATOCRIT 36.2 % (37.0-47.0); LYMPH # 1.1 10*3/uL (1.3-4.4); LYMPH % 15.8 % (27.0-41.0); MEAN CELL VOLUME 92.8 fl (81.0-99.0); MEAN CORPUSCULAR HGB 29.7 pg (27.0-31.0); MEAN PLATELET VOLUME 9.9 fl (9.6-12.3); MONO # 0.7 10*3/uL (0.1-1.0); MONO % 10.7 % (3.0-9.0); NEUT # 4.7 10*3/uL (2.3-7.9); NEUT % 70.3 % (47.0-73.0); PLATELET COUNT AUTOMATED 231 10*3/uL (130-400); WHITE BLOOD COUNT 6.7 10*3/uL (4.8-10.8)
[2024-02-12 08:00] VITALS: BP 123/59
[2024-02-12] MEDS ORDERED: THYROID 30 MG TAB PO SCH (10:00)
[2024-02-12] MEDS ORDERED: FUROSEMIDE 40 MG/4 ML VIAL IV SCH (10:00)
[2024-02-12 13:00] VITALS: BP 147/60
[2024-02-12 16:00] VITALS: BP 116/69
[2024-02-12 20:00] VITALS: BP 93/48
[2024-02-13] VITALS: BP 99/72
[2024-02-13 06:39] LABS: BASO # 0.1 10*3/uL (0.0-0.1); BASO % 1.1 % (0.0-1.0); EOS # 0.3 10*3/uL (0.0-0.4); EOS % 4.8 % (1.0-4.0); HEMATOCRIT 38.3 % (37.0-47.0); LYMPH # 1.1 10*3/uL (1.3-4.4); MEAN CELL VOLUME 94.8 fl (81.0-99.0); MEAN CORPUSCULAR HGB 29.7 pg (27.0-31.0); MEAN CORPUSCULAR HGB CONC 31.3 g/dl (33.0-37.0); MEAN PLATELET VOLUME 9.7 fl (9.6-12.3); MONO # 0.6 10*3/uL (0.1-1.0); MONO % 10.7 % (3.0-9.0); NEUT # 3.6 10*3/uL (2.3-7.9); PLATELET COUNT AUTOMATED 230 10*3/uL (130-400); RED BLOOD COUNT 4.04 10*6/uL (4.10-5.10); RED CELL DISTRI WIDTH 13.8 % (0-14.5); WHITE BLOOD COUNT 5.7 10*3/uL (4.8-10.8)
[2024-02-13 07:11] LABS: BUN 13 mg/dl (9-23); CHLORIDE 108 mmol/L (98-107); POTASSIUM 3.7 mmol/L (3.4-5.1)
[2024-02-13 08:00] VITALS: BP 99/72
[2024-02-13 12:00] VITALS: BP 100/51; BP 148/93
[2024-02-13 20:00] VITALS: BP 104/68
[2024-02-14] VITALS: BP 93/48
[2024-02-14 06:20] LABS: BASO # 0.1 10*3/uL (0.0-0.1); BASO % 1.1 % (0.0-1.0); EOS # 0.3 10*3/uL (0.0-0.4); EOS % 4.4 % (1.0-4.0); HEMATOCRIT 38.8 % (37.0-47.0); LYMPH # 1.1 10*3/uL (1.3-4.4); LYMPH % 16.5 % (27.0-41.0); MEAN CORPUSCULAR HGB 29.5 pg (27.0-31.0); MEAN CORPUSCULAR HGB CONC 30.7 g/dl (33.0-37.0); MEAN PLATELET VOLUME 9.6 fl (9.6-12.3); MONO # 0.6 10*3/uL (0.1-1.0); NEUT # 4.3 10*3/uL (2.3-7.9); NEUT % 67.7 % (47.0-73.0); PLATELET COUNT AUTOMATED 252 10*3/uL (130-400); RED BLOOD COUNT 4.04 10*6/uL (4.10-5.10); RED CELL DISTRI WIDTH 13.6 % (0-14.5); WHITE BLOOD COUNT 6.4 10*3/uL (4.8-10.8)
[2024-02-14 06:21] LABS: BUN 18 mg/dl (9-23); CHLORIDE 106 mmol/L (98-107); POTASSIUM 3.6 mmol/L (3.4-5.1)
[2024-02-14 08:00] VITALS: BP 109/73
[2024-02-14 12:00] VITALS: BP 119/68
[2024-02-14 16:00] VITALS: BP 148/92
[2024-02-14 20:00] VITALS: BP 108/83
[2024-02-15] VITALS: BP 104/58
[2024-02-15 05:33] LABS: BUN 26 mg/dl (9-23); CHLORIDE 107 mmol/L (98-107); POTASSIUM 3.2 mmol/L (3.4-5.1)
[2024-02-15] MEDS ORDERED: POTASSIUM CHLORIDE 20 MEQ TAB PO ONE (07:15)
[2024-02-15 08:00] VITALS: BP 90/52
[2024-02-15 12:00] VITALS: BP 107/72
[2024-02-15] MEDS ORDERED: BARIUM SULFATE 98% 340 GM BOT PO ONE ×2 (13:30→13:38)
[2024-02-15 16:00] VITALS: BP 100/63
[2024-02-15] MEDS ORDERED: AMOX-CLAV 875-1 EACH PO (16:38)
[2024-02-15] MEDS ORDERED: LASIX20 MG PO (16:40)
[2024-02-15] MEDS ORDERED: KLOR-CON M1010 ME1 PO (16:41)
== END 2024-02-15 18:00 | disposition home or self-care (01) | DRG 871 ==
LOC: ED 15:29 → EDHOLD 20:19 → 4E 20:19
PROVIDERS: Internal Medicine; Nurse Practitioner; Nurse Practitioner Family; Student in an Organized Health Care Education/Training Program; ADMIT Internal Medicine; ATTEND Internal Medicine
DX: A41.9 Sepsis, unspecified organism (principal); J69.0 Pneumonitis due to inhalation of food and vomit; E44.1 Mild protein-calorie malnutrition; J90 Pleural effusion, not elsewhere classified; Z68.1 Body mass index [BMI] 19.9 or less, adult; E87.8 Other disorders of electrolyte and fluid balance, not elsewhere classified; I50.9 Heart failure, unspecified; I08.3 Combined rheumatic disorders of mitral, aortic and tricuspid valves; R73.9 Hyperglycemia, unspecified; E03.9 Hypothyroidism, unspecified; F89 Unspecified disorder of psychological development; G20.B2 Parkinson's disease with dyskinesia, with fluctuations; R13.10 Dysphagia, unspecified; Z79.899 Other long term (current) drug therapy; Z82.49 Family history of ischemic heart disease and other diseases of the circulatory system

== ENCOUNTER → 2024-06-30 | Outpatient (CLI) | payer MEDICARE, MEDICAID ==
[~2024-06-30] MED LIST changes: +AMOX-CLAV 875-1 EACH PO; +KLOR-CON M1010 ME1 PO; +LASIX20 MG PO; +NEURONTIN300 MG PO; +RYTARY ER 23.71 EACH PO
[2024-06-30 10:23] LABS: BASO # 0.1 10*3/uL (0.0-0.1); BASO % 0.9 % (0.0-1.0); EOS # 0.3 10*3/uL (0.0-0.4); EOS % 5.5 % (1.0-4.0); HEMATOCRIT 37.6 % (37.0-47.0); LYMPH % 16.7 % (27.0-41.0); MEAN CELL VOLUME 96.7 fl (81.0-99.0); MEAN CORPUSCULAR HGB 29.3 pg (27.0-31.0); MEAN CORPUSCULAR HGB CONC 30.3 g/dl (33.0-37.0); MEAN PLATELET VOLUME 9.5 fl (9.6-12.3); MONO # 0.5 10*3/uL (0.1-1.0); MONO % 9.2 % (3.0-9.0); NEUT # 3.8 10*3/uL (2.3-7.9); NEUT % 67.2 % (47.0-73.0); PLATELET COUNT AUTOMATED 208 10*3/uL (130-400); RED BLOOD COUNT 3.89 10*6/uL (4.10-5.10); RED CELL DISTRI WIDTH 14.2 % (0-14.5); WHITE BLOOD COUNT 5.7 10*3/uL (4.8-10.8)
== END | disposition home or self-care (01) ==
LOC: LAB 10:01
PROVIDERS: ATTEND Family Medicine
DX: J90 Pleural effusion, not elsewhere classified (principal)

== ENCOUNTER → 2024-11-24 | Outpatient (CLI) | payer MEDICARE, MEDICAID ==
[2024-11-24 14:18] LABS: BASO # 0.1 10*3/uL (0.0-0.1); EOS # 0.2 10*3/uL (0.0-0.4); EOS % 2.6 % (1.0-4.0); HEMATOCRIT 41.4 % (37.0-47.0); MEAN CELL VOLUME 95.8 fl (81.0-99.0); MEAN CORPUSCULAR HGB 29.9 pg (27.0-31.0); MEAN CORPUSCULAR HGB CONC 31.2 g/dl (33.0-37.0); MEAN PLATELET VOLUME 9.8 fl (9.6-12.3); MONO # 0.6 10*3/uL (0.1-1.0); MONO % 8.8 % (3.0-9.0); NEUT # 4.6 10*3/uL (2.3-7.9); NEUT % 73.6 % (47.0-73.0); PLATELET COUNT AUTOMATED 340 10*3/uL (130-400); RED BLOOD COUNT 4.32 10*6/uL (4.10-5.10); RED CELL DISTRI WIDTH 14.3 % (0-14.5); WHITE BLOOD COUNT 6.2 10*3/uL (4.8-10.8)
== END | disposition home or self-care (01) ==
LOC: LAB 13:58
PROVIDERS: ATTEND Family Medicine
DX: J98.4 Other disorders of lung (principal); R05.8 Other specified cough; R09.89 Other specified symptoms and signs involving the circulatory and respiratory systems; R06.2 Wheezing

== ENCOUNTER → 2025-04-02 | Outpatient (CLI) | payer MEDICARE, MEDICAID ==
[~2025-04-02] MED LIST changes: +FUROSEMIDE40 MG PO
== END ==
LOC: WOUNDCARE 12:00
PROVIDERS: ATTEND Nurse Practitioner Family
DX: L89.150 Pressure ulcer of sacral region, unstageable (principal); E46 Unspecified protein-calorie malnutrition; G20.A1 Parkinson's disease without dyskinesia, without mention of fluctuations; R13.12 Dysphagia, oropharyngeal phase; Z79.899 Other long term (current) drug therapy

== ENCOUNTER → 2025-04-09 | Outpatient (CLI) | payer MEDICARE, MEDICAID ==
[~2025-04-09] MED LIST changes: -FUROSEMIDE40 MG PO
== END | disposition home or self-care (01) ==
LOC: WOUNDCARE 01:07
PROVIDERS: ATTEND Nurse Practitioner Family
DX: L89.150 Pressure ulcer of sacral region, unstageable (principal); G20.A1 Parkinson's disease without dyskinesia, without mention of fluctuations; R13.12 Dysphagia, oropharyngeal phase; E46 Unspecified protein-calorie malnutrition; E03.9 Hypothyroidism, unspecified; Z79.899 Other long term (current) drug therapy

== ENCOUNTER → 2025-04-16 | Outpatient (CLI) | payer MEDICARE, MEDICAID | END | disposition home or self-care (01) | LOC: WOUNDCARE 01:54 | PROVIDERS: ATTEND Nurse Practitioner Family | DX: L89.153 Pressure ulcer of sacral region, stage 3 (principal); G20.A1 Parkinson's disease without dyskinesia, without mention of fluctuations; R13.12 Dysphagia, oropharyngeal phase; E46 Unspecified protein-calorie malnutrition; E07.9 Disorder of thyroid, unspecified; Z79.899 Other long term (current) drug therapy ==

== ENCOUNTER → 2025-04-23 | Outpatient (CLI) | payer MEDICARE, MEDICAID | END | disposition home or self-care (01) | LOC: WOUNDCARE 01:07 | PROVIDERS: ATTEND Nurse Practitioner Primary Care | DX: L89.154 Pressure ulcer of sacral region, stage 4 (principal); G20.A1 Parkinson's disease without dyskinesia, without mention of fluctuations; R13.12 Dysphagia, oropharyngeal phase; E46 Unspecified protein-calorie malnutrition; E03.9 Hypothyroidism, unspecified; Z79.899 Other long term (current) drug therapy ==

== ENCOUNTER 2025-05-08 15:36 | Inpatient (IN) | payer OTHER ==
[~2025-05-08] VITALS: Ht 147.3 cm; Wt 32.7 kg
[~2025-05-08 15:36] MED LIST changes: +FUROSEMIDE40 MG PO
[2025-05-08 16:00] VITALS: BP 113/73
[2025-05-08] MEDS ORDERED: diazePAM 10 MG/2 ML SYR IV PRN (17:35)
[2025-05-08] MEDS ORDERED: SODIUM CHLORIDE 0.9% 500 ML IV SCH (17:55)
[2025-05-08] MEDS ORDERED: SODIUM CHLORIDE 0.9% 500 ML IV ONE (18:22)
[2025-05-08 20:00] VITALS: BP 142/64
[2025-05-08] MEDS ORDERED: Albuterol Sulf/Ipratropium 3 ML VIAL NEB SCH (20:25)
[2025-05-08] MEDS ORDERED: GLYCOPYRROLATE 0.2 MG/1 ML VIAL SC PRN (21:35)
[2025-05-08] MEDS ORDERED: GLYCOPYRROLATE 0.4 MG/2 ML VIAL SC PRN (21:40)
== END 2025-05-09 01:21 | DRG 602 ==
LOC: 5E 15:36
PROVIDERS: ADMIT Internal Medicine; ATTEND Internal Medicine
DX: L03.317 Cellulitis of buttock (principal); E43 Unspecified severe protein-calorie malnutrition; Z68.1 Body mass index [BMI] 19.9 or less, adult; L02.31 Cutaneous abscess of buttock; D69.6 Thrombocytopenia, unspecified; E86.0 Dehydration; E87.8 Other disorders of electrolyte and fluid balance, not elsewhere classified; Z66 Do not resuscitate; E03.9 Hypothyroidism, unspecified; I10 Essential (primary) hypertension; L89.309 Pressure ulcer of unspecified buttock, unspecified stage; Z51.5 Encounter for palliative care